=== PATIENT | female | born 2000 | race Caucasian/White ===

== ENCOUNTER 2022-09-08 17:56 | Emergency (ER) | payer BC, SELFPAY ==
[2022-09-08] MEDS ORDERED: Acetaminophen 325 MG TAB ONE (19:09)
[2022-09-08] MEDS ORDERED: Ketorolac Tromethamine 30 MG/ML VIAL ONE (19:10)
[2022-09-08 19:29] LABS: Bilirubin Neg (Negative); Blood, Urine 250 (Negative); Clarity Cloudy (Clear); Glucose, Urine (Dipstick) Normal (Negative); Ketone, Urine 50 mg/dL (Negative); Leukocyte 25 (Negative); Nitrite Negative (Negative); Protein, Urine (Dipstick) 15 mg/dl (Neg-Trace); Specific Gravity, Urine 1.025 (1.005-1.030); Urobilinogen Normal mg/dL (Less than 2)
[2022-09-08 19:39] LABS: Bacteria/HPF 2+ HPF (None Seen); Mucous/LPF 3+ LPF (<2+); RBC/HPF 0-3 HPF (0-3)
[2022-09-09 17:04] LABS: Chlam.trachomatis by PCR,Urine Not Detected (NotDetected)
== END 2022-09-08 21:39 | disposition home or self-care (01) ==
LOC: CSHERS 17:56
DX: N75.1 Abscess of Bartholin's gland (principal)
CPT/HCPCS: 56420; 81003; 81015; 87491; 87591; 96372; J1885